=== PATIENT | female | born 1995 | race Caucasian/White ===

== ENCOUNTER 2017-09-25 23:08 | Emergency (ER) | payer OTHER, MEDICAID ==
[2017-09-25 23:15] VITALS: TEMP 98.3
[2017-09-26 00:18] VITALS: BP 132/66; PULSE 81
== END 2017-09-26 00:18 | disposition home or self-care (01) ==
LOC: COL.ER 23:08
DX: O9A.212 Injury, poisoning and certain other consequences of external causes complicating pregnancy, second trimester (principal); V43.52XA Car driver injured in collision with other type car in traffic accident, initial encounter; Z3A.20 20 weeks gestation of pregnancy

== ENCOUNTER → 2018-02-06 | Outpatient (CLI) | payer MEDICAID ==
[~2018-02-06] MED LIST: MOTRIN 800800 MG/TAB PO; PERCOCET 325 MG1 TA2 PO; PRENATAL
[2018-02-06 23:20] VITALS: BP 126/58; PULSE 71; TEMP 97.8
[2018-02-06 23:58] VITALS: BP 126/58; PULSE 71; TEMP 97.8
== END ==
LOC: LDRO 23:01
DX: O99.89 Other specified diseases and conditions complicating pregnancy, childbirth and the puerperium (principal); R68.83 Chills (without fever); Z3A.40 40 weeks gestation of pregnancy

== ENCOUNTER 2018-02-08 06:45 | Inpatient (IN) | payer MEDICAID ==
[2018-02-08] VITALS (60 sets, daily range): BP systolic 99–162; BP diastolic 51–98; PULSE 59–105; TEMP 97.6–98.8
[~2018-02-08] VITALS: Ht 165.1 cm; Wt 110.5 kg
[2018-02-08] MEDS ORDERED: PRENATAL (06:54)
[2018-02-08 07:37] LABS: BASO % 0.2 % (0.0-2.0); EOS # 0.1 (0.0-0.7); EOS % 0.9 % (0-4.0); GRAN # 7.1 (1.4-6.5); GRAN % 74.8 % (42.2-75.2); HEMOGLOBIN 11.5 g/dl (12.5-16.0); LYMPH # 1.7 (1.2-3.4); LYMPH % 18.1 % (20.0-51.0); MEAN CELL VOLUME 91 fl (80.0-100.0); MEAN CORPUSCULAR HEMOGLOBIN 30 pg (27.0-31.0); MEAN CORPUSCULAR HGB CONC 33 g/dl (33.0-37.0); MEAN PLATELET VOLUME 12.4 fl (7.4-10.4); MONO # 0.4 (0.1-0.6); MONO % 4.6 % (1.7-9.3); PLATELET COUNT 154 K/mm3 (130-400); RED BLOOD COUNT 3.79 M/mm3 (4.10-5.30); REDCELL DISTRIBUTION WIDTH-CV 14.1 % (11.5-14.5)
[2018-02-08 07:46] LABS: HEMATOCRIT 34.5 % (37.0-47.0)
[2018-02-08] MEDS ORDERED: PERCOCET 325 MG1 TA2 PO (12:19)
[2018-02-08] MEDS ORDERED: MOTRIN 800800 MG/TAB PO (12:19)
[2018-02-09 00:15] VITALS: BP 146/79; PULSE 96; TEMP 98.4
[2018-02-09 01:50] VITALS: BP 146/79; PULSE 76; TEMP 98.9
[2018-02-09 06:26] LABS: HEMATOCRIT 27.8 % (37.0-47.0); HEMOGLOBIN 9.4 g/dl (12.5-16.0)
[2018-02-09 07:10] VITALS: BP 128/67; PULSE 84; TEMP 97.7
[2018-02-09 12:30] VITALS: BP 121/63; PULSE 100; TEMP 98.7
[2018-02-09 16:15] VITALS: BP 131/63; PULSE 98; TEMP 98.8
[2018-02-09 20:30] VITALS: BP 133/70; PULSE 82; TEMP 98.8
[2018-02-10 07:45] VITALS: BP 133/76; PULSE 100; TEMP 98.3
[2018-02-10 16:45] VITALS: BP 123/66; PULSE 97; TEMP 97.3
[2018-02-10 17:00] VITALS: BP 132/72; PULSE 100; TEMP 98.5
[2018-02-10 21:40] VITALS: BP 142/85; PULSE 101; TEMP 97.8
[2018-02-11 08:00] VITALS: BP 145/70; PULSE 92; TEMP 97.6
[2018-02-11] MEDS ORDERED: PERCOCET 325 MG1 TA2 PO (11:01)
== END 2018-02-11 12:00 | disposition home or self-care (01) | DRG 766 ==
LOC: LDR 06:45 → OB 20:30
PROVIDERS: Obstetrics & Gynecology
PROC: 10D00Z1 Extraction of Products of Conception, Low, Open Approach (ICD-10-PCS; principal; 2018-02-08)
PROC: 10907ZC Drainage of Amniotic Fluid, Therapeutic from Products of Conception, Via Natural or Artificial Opening (ICD-10-PCS; 2018-02-08)
PROC: 3E033VJ Introduction of Other Hormone into Peripheral Vein, Percutaneous Approach (ICD-10-PCS; 2018-02-08)
DX: O62.1 Secondary uterine inertia (principal); Z3A.40 40 weeks gestation of pregnancy; Z37.0 Single live birth; Z22.330 Carrier of Group B streptococcus; O99.214 Obesity complicating childbirth; O62.2 Other uterine inertia
CPT/HCPCS: J0171; J0690; J1885; J2210; J2270; J2370; J2400; J2405; J2540; J2590; J7120

== ENCOUNTER → 2018-02-12 | Outpatient (CLI) | payer MEDICAID | LOC: OLC 14:18 | DX: Z39.1 Encounter for care and examination of lactating mother (principal); Z71.89 Other specified counseling ==

== ENCOUNTER 2018-03-07 18:44 | Inpatient (IN) | payer MEDICAID ==
[~2018-03-07] VITALS: Ht 165.1 cm; Wt 89.4 kg
[2018-03-07 19:38] LABS: COLLECTION METHOD CLEAN CATCH
[2018-03-07 19:48] LABS: MUCOUS Present /lpf; PH 5 (5-8); URINE APPEARANCE Hazy; URINE BACTERIA None Seen /hpf; URINE BILIRUBIN Positive (NEGATIVE); URINE BLOOD Negative (NEGATIVE); URINE COLOR Amber; URINE GLUCOSE Negative (NEGATIVE); URINE KETONE Trace (NEGATIVE); URINE LEUKOCYTE ESTERASE Trace (NEGATIVE); URINE NITRATE Negative (NEGATIVE); URINE PROTEIN(semi-quant) 2+ (NEGATIVE); URINE UROBILINOGEN >=4.0 mg/dL (NEGATIVE)
[2018-03-07 19:51] LABS: BASO % 0.2 % (0.0-2.0); EOS # 0.1 (0.0-0.7); EOS % 0.6 % (0-4.0); GRAN # 7.9 (1.4-6.5); GRAN % 83.9 % (42.2-75.2); HEMOGLOBIN 12.8 g/dl (12.5-16.0); LYMPH # 1.1 (1.2-3.4); LYMPH % 11.2 % (20.0-51.0); MEAN CELL VOLUME 87 fl (80.0-100.0); MEAN CORPUSCULAR HEMOGLOBIN 29 pg (27.0-31.0); MEAN CORPUSCULAR HGB CONC 34 g/dl (33.0-37.0); MEAN PLATELET VOLUME 10.9 fl (7.4-10.4); MONO # 0.4 (0.1-0.6); MONO % 3.7 % (1.7-9.3); PLATELET COUNT 268 K/mm3 (130-400); RED BLOOD COUNT 4.35 M/mm3 (4.10-5.30); REDCELL DISTRIBUTION WIDTH-CV 12.3 % (11.5-14.5)
[2018-03-07 20:07] LABS: ALBUMIN 4.3 gm/dL (3.5-5.0); BILIRUBIN,TOTAL 2.5 mg/dL (0.0-1.0); CALCIUM 9.4 mg/dL (8.4-10.2); CREATININE, serum 0.76 mg/dL (0.52-1.25); POTASSIUM 3.9 mmol/L (3.4-5.0); TOTAL PROTEIN 8.7 gm/dL (6.4-8.2)
[2018-03-07 23:41] VITALS: BP 118/66; PULSE 62; TEMP 98.2
[2018-03-08] VITALS (9 sets, daily range): BP systolic 108–125; BP diastolic 54–96; PULSE 49–63; TEMP 98–98.2
[2018-03-08 06:33] LABS: BASO % 0.5 % (0.0-2.0); EOS # 0.3 (0.0-0.7); EOS % 3.9 % (0-4.0); GRAN # 3.6 (1.4-6.5); GRAN % 57.2 % (42.2-75.2); LYMPH # 1.8 (1.2-3.4); MEAN CELL VOLUME 89 fl (80.0-100.0); MEAN CORPUSCULAR HGB CONC 32 g/dl (33.0-37.0); MEAN PLATELET VOLUME 11.6 fl (7.4-10.4); MONO # 0.6 (0.1-0.6); MONO % 9.1 % (1.7-9.3); PLATELET COUNT 219 K/mm3 (130-400); RED BLOOD COUNT 3.68 M/mm3 (4.10-5.30); REDCELL DISTRIBUTION WIDTH-CV 12.6 % (11.5-14.5)
[2018-03-08 06:37] LABS: HEMATOCRIT 32.8 % (37.0-47.0); HEMOGLOBIN 10.6 g/dl (12.5-16.0); MEAN CORPUSCULAR HEMOGLOBIN 29 pg (27.0-31.0)
[2018-03-08 06:50] LABS: ALBUMIN 3.3 gm/dL (3.5-5.0); BILIRUBIN,TOTAL 1.8 mg/dL (0.0-1.0); CALCIUM 8.6 mg/dL (8.4-10.2); CREATININE, serum 0.76 mg/dL (0.52-1.25); POTASSIUM 3.7 mmol/L (3.4-5.0); TOTAL PROTEIN 6.6 gm/dL (6.4-8.2)
[2018-03-08] MEDS ORDERED: AMOXICILLIN 8751 TAB PO (15:49)
[2018-03-08] MEDS ORDERED: PERCOCET 325 MG1 TA2 PO (15:50)
[2018-03-11] MEDS ORDERED: PERCOCET 325 MG1 TA2 PO (13:36)
[2018-03-11] MEDS ORDERED: COLACE 100100 MG/CAP PO (13:36)
[2018-03-11] MEDS ORDERED: MOTRIN 600600 MG/TAB PO (13:37)
== END 2018-03-08 17:25 | disposition home or self-care (01) | DRG 446 ==
LOC: COL.ER 18:44 → SURG 21:13
PROVIDERS: Emergency Medicine; Internal Medicine Gastroenterology; Surgery
PROC: BF111ZZ Fluoroscopy of Biliary and Pancreatic Ducts using Low Osmolar Contrast (ICD-10-PCS; 2018-03-08)
PROC: 0FC98ZZ Extirpation of Matter from Common Bile Duct, Via Natural or Artificial Opening Endoscopic (ICD-10-PCS; principal; 2018-03-08 14:00)
DX: K80.50 Calculus of bile duct without cholangitis or cholecystitis without obstruction (principal); K21.9 Gastro-esophageal reflux disease without esophagitis; E66.9 Obesity, unspecified; Z68.35 Body mass index [BMI] 35.0-35.9, adult
CPT/HCPCS: A9284; C1769; J0744; J2250; J2270; J2405; J2543; J2704; J2765; J3010; J7030; J7120; Q9967

== ENCOUNTER → 2018-03-11 | Day surgery (SDC) | payer OTHER, MEDICAID ==
[~2018-03-11] VITALS: Ht 165.1 cm; Wt 96.8 kg
[~2018-03-11] MED LIST changes: +AMOXICILLIN 8751 TAB PO; +COLACE 100100 MG/CAP PO; +MOTRIN 600600 MG/TAB PO
[2018-03-11 11:23] VITALS: BP 115/65; PULSE 67; TEMP 98
[2018-03-11 11:29] LABS: BASO % 0.3 % (0.0-2.0); EOS # 0.4 (0.0-0.7); EOS % 5.5 % (0-4.0); GRAN # 4.6 (1.4-6.5); GRAN % 65.8 % (42.2-75.2); HEMOGLOBIN 12.1 g/dl (12.5-16.0); LYMPH # 1.6 (1.2-3.4); LYMPH % 22.5 % (20.0-51.0); MEAN CELL VOLUME 89 fl (80.0-100.0); MEAN CORPUSCULAR HEMOGLOBIN 29 pg (27.0-31.0); MEAN CORPUSCULAR HGB CONC 33 g/dl (33.0-37.0); MEAN PLATELET VOLUME 10.7 fl (7.4-10.4); MONO # 0.4 (0.1-0.6); MONO % 5.5 % (1.7-9.3); PLATELET COUNT 259 K/mm3 (130-400); RED BLOOD COUNT 4.13 M/mm3 (4.10-5.30); REDCELL DISTRIBUTION WIDTH-CV 12.6 % (11.5-14.5)
[2018-03-11 11:38] LABS: HEMATOCRIT 36.7 % (37.0-47.0)
[2018-03-11 11:44] LABS: CALCIUM 9.3 mg/dL (8.4-10.2); CREATININE, serum 0.67 mg/dL (0.52-1.25); POTASSIUM 4.1 mmol/L (3.4-5.0)
[2018-03-11 14:15] VITALS: BP 113/66; PULSE 57; TEMP 97.4
[2018-03-11 14:30] VITALS: BP 111/66; PULSE 51
[2018-03-11 14:45] VITALS: BP 114/64; PULSE 52
[2018-03-11 15:00] VITALS: BP 104/54; PULSE 51
[2018-03-11 15:30] VITALS: BP 126/68; PULSE 60
== END ==
LOC: SDCO 10:06
PROVIDERS: Surgery
DX: K80.10 Calculus of gallbladder with chronic cholecystitis without obstruction (principal); K21.9 Gastro-esophageal reflux disease without esophagitis
CPT/HCPCS: J0690; J1885; J2270; J2405; J2704; J2710; J3010; J7120